=== PATIENT | male | born 1945 | race Caucasian/White ===

== ENCOUNTER → 2020-05-03 | Day surgery (SDC) | payer MEDICARE, BC | LOC: MSO 07:33 | DX: Z12.11 Encounter for screening for malignant neoplasm of colon (principal); D12.5 Benign neoplasm of sigmoid colon; I25.10 Atherosclerotic heart disease of native coronary artery without angina pectoris; I10 Essential (primary) hypertension; Z85.46 Personal history of malignant neoplasm of prostate; Z79.899 Other long term (current) drug therapy | CPT/HCPCS: 00811; J2704; J7120 ==

== ENCOUNTER → 2020-10-28 | Outpatient (CLI) | payer MEDICARE, BC | LOC: RAD 10:59 | DX: R59.0 Localized enlarged lymph nodes (principal); M54.2 Cervicalgia ==

== ENCOUNTER → 2020-12-09 | Outpatient (CLI) | payer MEDICARE, BC | LOC: RAD 13:44 | DX: R90.82 White matter disease, unspecified (principal); H93.13 Tinnitus, bilateral | CPT/HCPCS: A9585 ==

== ENCOUNTER → 2021-10-13 | Outpatient (CLI) | payer MEDICARE, BC | LOC: RAD 08:40 | DX: G31.1 Senile degeneration of brain, not elsewhere classified (principal); I77.9 Disorder of arteries and arterioles, unspecified; I63.81 Other cerebral infarction due to occlusion or stenosis of small artery; J32.2 Chronic ethmoidal sinusitis; J32.0 Chronic maxillary sinusitis ==